=== PATIENT | female | born 1945 | race Caucasian/White ===

== ENCOUNTER 2017-02-14 12:30 | Emergency (ER) | payer MEDICARE, OTHER ==
[~2017-02-14] VITALS: Ht 162.6 cm; Wt 86.2 kg
[~2017-02-14 12:30] MED LIST: CNC1KV IJ; D50KC PO; MUPI1OIN5 NS; OMEP-10 PO; SULF1TAB35 PO; VIT D PO
--- NOTE | 2017-02-14 12:42 | ED General ---
General Chief Complaint: Dizziness/Syncope Stated Complaint: CHEST PAIN Source of Information: Patient Exam Limitations: No Limitations History of Present Illness Time Seen by Provider: 12:41 Initial Comments Patient had acute onset of vertigo while driving home from work 30 minutes prior to arrival. She felt as if the world was spinning when she was driving. 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 Symptoms are associated with shortness of breath. She denies chest pain to me. Patient was able to drive short distances to her sister's house. Then she came to the ER. Currently she still feels very dizzy. She denies headache or chest pain. Denies nausea vomiting. No recent head or neck injury including chiropractic manipulation Allergies and Home Medications Allergies Coded Allergies: codeine (Unverified Adverse Reaction, Intermediate, 10/26/13) UPSET STOMACH hydrocodone (Verified Adverse Reaction, Unknown, NAUSEA, 02/14/17) Home Medications Cyanocobalamin 1,000 Mcg/Ml Inj, 1,000 MCG IJ MONTHLY ON THE , (Reported) Ergocalciferol (Vitamin D2) 50,000 Unit Capsule, 50,000 UNIT PO WEEKLY ON TUESDAYS, (Reported) Constitutional: dizziness, No fever, malaise, weakness Respiratory: short of breath Cardiovascular: no symptoms reported Musculoskeletal: no symptoms reported Skin: no symptoms reported Psychiatric/Neurological: No Symptoms Reported All Other Systems Reviewed Negative Unless Noted: Yes Past Eiyudzr-Wioklj-Invxwc Hx Patient Social History Alcohol Use: Denies Use Smoking Status: Current Everyday Smoker Type Used: Cigarettes Recent Hopitalizations: No Immunizations Up To Date Tetanus Booster (TDap): More than 5yrs PED Vaccines UTD: Yes Date of Influenza Vaccine: Sep 28, 2013 Surgeries HX Surgeries: Yes Surgeries: Appendectomy, Section, Gallbladder, Hysterectomy Respiratory Hx Respiratory Disorders: No Cardiovascular Hx Cardiac Disorders: No Neurological Hx Neurological Disorders: No Reproductive System Hx Reproductive Disorders: Yes (HYSTERECTOMY) Sexually Transmitted Disease: No HIV/AIDS: No Female Reproductive Disorders: Menstrual Problems Genitourinary Hx Genitourinary Disorders: No Gastrointestinal Hx Gastrointestinal Disorders: Yes Gastrointestinal Disorders: Gall Bladder Disease Musculoskeletal Hx Musculoskeletal Disorders: No Endocrine Hx Endocrine Disorders: No HEENT HX ENT Disorders: Yes HEENT Disorders: Cataract Loss of Vision: Denies Hearing Impairment: Denies Cancer Hx Cancer: No Psychosocial Hx Psychiatric Problems: No Integumentary HX Skin/Integumentary Disorder: No Blood Transfusions Hx Blood Disorders: No Adverse Reaction to a Blood Tr: No Reviewed Nursing Assessment Reviewed/Agree w Nursing PMH: Yes Family Medical History Family Medial History: Colon cancer 19 MOTHER Congenital heart disease 19 FATHER G8 BROTHER Myocardial infarction 19 FATHER Physical Exam Vital Signs Vital Sign - Last 12Hours 02/14/17 12:46 Temp 97.9 Pulse 74 Resp 18 B/P (MAP) 146/74 Pulse Ox 94 O2 Delivery Room Air Capillary Refill : General Appearance: WD/WN, Moderate Distress Eyes: Bilateral Eye EOMI, Bilateral Eye Normal Inspection, Bilateral Eye Other (patient has horizontal nystagmus), Bilateral Eye PERRL HEENT: PERRL/EOMI, TMs Normal, Normal ENT Inspection, Pharynx Normal Neck: Supple, No Carotid Bruit Respiratory: Lungs Clear, Normal Breath Sounds Cardiovascular: Regular Rate, Rhythm, No Edema Gastrointestinal: Non Tender, Soft Extremity: No Pedal Edema Neurologic/Psychiatric: Alert, Oriented x3, No Motor/Sensory Deficits, Normal Mood/Affect, 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 client 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 II-XII Norm as Tested, Other (wswhpo-wyxr-gevrpc is normal bilaterally) Skin: Normal Color, Warm/Dry Progress/Results/Core Measures Results/Orders Lab Results Laboratory Tests Test 02/14/17 12:36 Range/Units White Blood Count 8.5 4.3-11.0 10^3/uL Red Blood Count 4.09 L 4.35-5.85 10^6/uL Hemoglobin 13.0 11.5-16.0 G/DL Hematocrit 39 35-52 % Mean Corpuscular Volume 95 80-99 FL Mean Corpuscular Hemoglobin 32 25-34 PG Mean Corpuscular Hemoglobin Concent 34 32-36 G/DL Red Cell Distribution Width 12.7 10.0-14.5 % Platelet Count 251 130-400 10^3/uL Mean Platelet Volume 9.9 7.4-10.4 FL Neutrophils (%) (Auto) 37 L 42-75 % Lymphocytes (%) (Auto) 52 H 12-44 % Monocytes (%) (Auto) 7 0-12 % Eosinophils (%) (Auto) 4 0-10 % Basophils (%) (Auto) 1 0-10 % Neutrophils # (Auto) 3.2 1.8-7.8 X 10^3 Lymphocytes # (Auto) 4.4 H 1.0-4.0 X 10^3 Monocytes # (Auto) 0.6 0.0-1.0 X 10^3 Eosinophils # (Auto) 0.3 0.0-0.3 10^3/uL Basophils # (Auto) 0.1 0.0-0.1 10^3/uL Prothrombin Time 12.4 12.2-14.7 SEC INR Comment 1.0 0.8-1.4 Activated Partial Thromboplast Time 25 24-35 SEC Sodium Level 137 135-145 MMOL/L Potassium Level 3.8 3.6-5.0 MMOL/L Chloride Level 105 98-107 MMOL/L Carbon Dioxide Level 19 L 21-32 MMOL/L Anion Gap 13 5-14 MMOL/L Blood Urea Nitrogen 10 7-18 MG/DL Creatinine 0.80 0.60-1.30 MG/DL Estimat Glomerular Filtration Rate > 60 BUN/Creatinine Ratio 13 Glucose Level 93 70-105 MG/DL Calcium Level 9.3 8.5-10.1 MG/DL Magnesium Level 1.9 1.8-2.4 MG/DL Total Bilirubin 0.4 0.1-1.0 MG/DL Aspartate Amino Transf (AST/SGOT) 15 5-34 U/L Alanine Aminotransferase (ALT/SGPT) 10 0-55 U/L Alkaline Phosphatase 61 40-136 U/L Troponin I < 0.30 <0.30 NG/ML B-Type Natriuretic Peptide 11.8 <100.0 PG/ML Total Protein 7.0 6.4-8.2 G/DL Albumin 4.1 3.2-4.5 G/DL My Orders Orders - RAMIREZ CROWDER MD Chest 1 View, Ap/Pa Only (02/14/17 12:32) Ekg Tracing (02/14/17 12:32) Cbc With Automated Diff (02/14/17 12:32) Magnesium (02/14/17 12:32) Cardiac Profile 1 (02/14/17 12:32) Comprehensive Metabolic Panel (02/14/17 12:32) Protime With Inr (02/14/17 12:32) Partial Thromboplastin Time (02/14/17 12:32) O2 (02/14/17 12:32) Monitor-Rhythm Ecg Trace Only (02/14/17 12:32) Saline Lock/Iv-Start (02/14/17 12:32) BNP (02/14/17 12:42) Ct Head Wo (02/14/17 12:42) Meclizine Tablet (Antivert Tablet) (02/14/17 12:45) Medications Given in ED Current Medications Medications Dose Ordered Sig/Justin Route Start Time Stop Time Status Last Admin Dose Admin Meclizine HCl 25 mg ONCE ONCE PO 02/14/17 12:45 02/14/17 12:46 DC 02/14/17 13:06 25 MG Vital Signs/I&O Vital Sign - Last 12Hours 02/14/17 12:46 Temp 97.9 Pulse 74 Resp 18 B/P (MAP) 146/74 Pulse Ox 94 O2 Delivery Room Air Progress Note : Time: 13:43 Progress Note Symptoms are much improved after antivert. Patient able to sit up in bed without problems. No complaints of pain or dyspnea or vomiting. ECG Initial ECG Rhythm: Normal Sinus Initial ECG Intervals: Normal Initial ECG Impression: Nonspecific Changes Initial ECG Comparisson: Unchanged Diagnostic Imaging Comments Date of Exam:02/14/17 CHEST 1 VIEW, AP/PA ONLY INDICATION: Dyspnea. Comparison is made to study of 06/27/2016. FINDINGS: Heart size and pulmonary vascularity are within normal limits, and the lungs are clear, bilaterally. IMPRESSION: Unremarkable chest. Date of Exam:02/14/17 CT HEAD WO PROCEDURE: CT head without contrast. TECHNIQUE: Multiple contiguous axial images were obtained through the brain without the use of intravenous contrast. INDICATION: Syncopal episodes. COMPARISON: CT head without contrast 06/27/2016. FINDINGS: No intracranial hemorrhage, mass effect, hydrocephalus, or extra-axial fluid collections. No CT evidence of acute infarction. Osseous structures are intact. The orbits and mastoids are unremarkable. Persistent mild mucosal thickening in ethmoid and left sphenoid sinuses. 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 No air-fluid levels. IMPRESSION: 1. No acute intracranial CT findings. 2. Chronic-appearing paranasal sinus disease in the ethmoid and sphenoid sinuses. Departure Impression Impression: Primary Impression: Vertigo Additional Impression: Labyrinthitis Disposition: 01 HOME, SELF-CARE Condition: Stable Departure-Patient Inst. Decision time for Depature: 13:53 Referrals: NIA REGAN DO (PCP/Family) Primary Care Physician Patient Instructions: Vertigo (a Type of Dizziness) (DC) Scripts Meclizine HCl (Meclizine HCl) 25 Mg Tablet 25 MG PO QID Y for DIZZINESS, #20 TAB Prov: RAMIREZ CROWDER MD 02/14/17 RAMIREZ CROWDER MD Feb 14, 2017 12:41
[2017-02-14 12:44] LABS: BASOPHILS # (AUTO) 0.1 10^3/uL (0.0-0.1); BASOPHILS % (AUTO) 1 % (0-10); EOSINOPHILS # (AUTO) 0.3 10^3/uL (0.0-0.3); EOSINOPHILS % (AUTO) 4 % (0-10); LYMPHOCYTES # (AUTO) 4.4 X 10^3 (1.0-4.0); LYMPHOCYTES % (AUTO) 52 % (12-44); MEAN CORPUSCULAR HEMOGLOBIN 32 PG (25-34); MEAN CORPUSCULAR HGB CONC 34 G/DL (32-36); MEAN CORPUSCULAR VOLUME 95 FL (80-99); MEAN PLATELET VOLUME 9.9 FL (7.4-10.4); MONOCYTES # (AUTO) 0.6 X 10^3 (0.0-1.0); MONOCYTES % (AUTO) 7 % (0-12); NEUTROPHILS # (AUTO) 3.2 X 10^3 (1.8-7.8); NEUTROPHILS % (AUTO) 37 % (42-75); PLATELET COUNT 251 10^3/uL (130-400); RED BLOOD COUNT 4.09 10^6/uL (4.35-5.85); RED CELL DISTRIBUTION WIDTH 12.7 % (10.0-14.5); WHITE BLOOD COUNT 8.5 10^3/uL (4.3-11.0)
--- NOTE | 2017-02-14 12:58 | Diagnostic Imaging Report ---
INDICATION: Dyspnea. Comparison is made to study of 06/27/2016. FINDINGS: Heart size and pulmonary vascularity are within normal limits, and the lungs are clear, bilaterally. IMPRESSION: Unremarkable chest. Dictated by: Dictated on workstation # [id number]
[2017-02-14 13:02] LABS: ALANINE AMINOTRANSFERASE 10 U/L (0-55); ALBUMIN 4.1 G/DL (3.2-4.5); ANION GAP 13 MMOL/L (5-14); ASPARTATE AMINO TRANSFERASE 15 U/L (5-34); BILIRUBIN,TOTAL 0.4 MG/DL (0.1-1.0); BLOOD UREA NITROGEN 10 MG/DL (7-18); BUN/CREATININE RATIO 13; CALCIUM 9.3 MG/DL (8.5-10.1); CARBON DIOXIDE 19 MMOL/L (21-32); CHLORIDE 105 MMOL/L (98-107); GFR ESTIMATED > 60; GLUCOSE 93 MG/DL (70-105); MAGNESIUM 1.9 MG/DL (1.8-2.4); POTASSIUM 3.8 MMOL/L (3.6-5.0); SODIUM 137 MMOL/L (135-145)
[2017-02-14 13:04] LABS: PROTHROMBIN TIME PATIENT 12.4 SEC (12.2-14.7)
[2017-02-14] MEDS: MECLIZINE 25 MG (ANTIVERT) TAB PO ONE (13:06)
--- NOTE | 2017-02-14 13:32 | Diagnostic Imaging Report ---
PROCEDURE: CT head without contrast. TECHNIQUE: Multiple contiguous axial images were obtained through the brain without the use of intravenous contrast. INDICATION: Syncopal episodes. COMPARISON: CT head without contrast 06/27/2016. FINDINGS: No intracranial hemorrhage, mass effect, hydrocephalus, or extra-axial fluid collections. No CT evidence of acute infarction. Osseous structures are intact. The orbits and mastoids are unremarkable. Persistent mild mucosal thickening in ethmoid and left sphenoid sinuses. 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 No air-fluid levels. IMPRESSION: 1. No acute intracranial CT findings. 2. Chronic-appearing paranasal sinus disease in the ethmoid and sphenoid sinuses. Dictated by: Dictated on workstation # [id number]
[2017-02-14] MEDS ORDERED: MECL-106 PO (13:54)
[2017-02-14 14:15] VITALS: BP 140/96
--- OUTSIDE RECORDS SUMMARY | 2017-02-16 12:35 | XMS REPORT ---
Author Author STEVIE MONTOYA [facility] [employer] Address Unknown Phone Unavailable Care Team Providers Care Restaurant Attendant Name Role Phone STEVIE MONTOYA CP Unavailable Allergies No Known Allergies Problems Problem Type Condition Code Onset Dates Condition Status Assessment Visit for TB skin test Z11.1 Active Problem Screening examination for pulmonary tuberculosis V74.1 Active Medications No Known Medications Procedures Procedure Coding System Code Date TB INTRADERMAL TEST CPT-4 08225 Sep 04, 2016 Results No Known Results Summary Purpose [employer] Submission
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
== END 2017-02-14 14:15 | disposition home or self-care (01) ==
LOC: EDUNIT# 12:30 → ER 12:32
DX: R42 Dizziness and giddiness (principal); H83.03 Labyrinthitis, bilateral; J32.8 Other chronic sinusitis; F17.210 Nicotine dependence, cigarettes, uncomplicated
CPT/HCPCS: 36415; 70450; 71010; 80053; 83735; 83880; 84484; 85025; 85610; 85730; 93005; 93041

== ENCOUNTER 2017-11-26 13:44 | Outpatient (CLI) | payer MEDICARE, OTHER ==
[~2017-11-26] VITALS: Ht 160 cm; Wt 90.7 kg
[~2017-11-26 13:44] MED LIST changes: -D50KC PO; +ERGO50006 PO; +MECL-106 PO
== END 2017-11-26 13:47 ==
LOC: PREOP 13:44
PROVIDERS: ATTEND Surgery
DX: Z01.818 Encounter for other preprocedural examination (principal); R13.10 Dysphagia, unspecified; Z80.0 Family history of malignant neoplasm of digestive organs

== ENCOUNTER 2017-12-02 07:08 | Day surgery (SDC) | payer MEDICARE, OTHER ==
[~2017-12-02] VITALS: Ht 160 cm; Wt 90.7 kg
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
[2017-12-02] MEDS ORDERED: LACTATED RINGERS 1,000 ML IV ONE (07:26)
[2017-12-02] MEDS ORDERED: LACTATED RINGERS 1,000 ML IV STA (07:39)
[2017-12-02] MEDS ORDERED: HURRICAINE EXT TUBE (BENZOCAINE) XX PRN (07:45)
[2017-12-02 07:46] VITALS: BP 124/72
--- NOTE | 2017-12-02 07:54 | Progress Note-Pre Operative ---
Pre-Operative Progress Note H&P Reviewed The H&P was reviewed, patient examined and no changes noted. Date Seen by Provider: Dec 02, 2017 Time Seen by Provider: 07:53 Date H&P Reviewed: Dec 02, 2017 Time H&P Reviewed: 07:53 Pre-Operative Diagnosis: dysphagia, family history colon cancer ANUEL DAWSON DO Dec 02, 2017 07:54
[2017-12-02] MEDS ORDERED: PROPOFOL INJECTION 50 ML IV ONE (07:55)
[2017-12-02] MEDS ORDERED: MIDAZOLAM 2 MG/2 ML (VERSED) VIAL ONE (07:56)
[2017-12-02] MEDS ORDERED: proPOfol 200 MG/20 ML (DIPRIVAN) VIAL IV ONE (09:10)
--- NOTE | 2017-12-02 09:32 | Progress Note-Post Operative ---
Post-Operative Progess Note Surgeon (s)/Cook Larder (s) Surgeon ANUEL DAWSON DO Cook Larder: na Pre-Operative Diagnosis dysphagia, family history colon cancer Post-Operative Diagnosis gastritis, small hiatal hernia, colon polyps x 5 Procedure & Operative Findings Date of Procedure 12/02/17 Procedure Performed/Findings egd c biopsies, colonoscopy with hot bx polypectomy x 2 and snare polypectomy x 3 Anesthesia Type per respiratory therapy instructor Estimated Blood Loss Estimated blood loss (mL): none Specimens/Packing Specimens Removed antrum, cardia , ge junction, transverse/descending x 2/sigmoid x 1/rectal x 1 ANUEL DAWSON DO Dec 02, 2017 09:32
[2017-12-02] MEDS ORDERED: PANT40TA2 PO (09:33)
--- NOTE | 2017-12-02 09:36 | Discharge Inst-Simple/Standard ---
Discharge Inst-Standard Discharge Medications New, Converted or Re-Newed RX: Transmitted to Pharmacy Patient Instructions/Follow Up Plan of Care/Instructions/FU: 3 weeks Christi Activity as Tolerated: Yes Discharge Diet: Regular Diet ANUEL DAWSON DO Dec 02, 2017 09:36
[2017-12-02 09:45] VITALS: BP 122/78
[2017-12-02 10:10] VITALS: BP 129/79
[2017-12-02 10:20] VITALS: BP 129/79
[2017-12-02] MEDS ORDERED: HURRICAINE EXT TUBE (BENZOCAINE) ONE (14:29)
--- NOTE | 2017-12-03 09:22 | OPERATIVE REPORT ---
DATE OF SERVICE: 12/02/2017 PREOPERATIVE DIAGNOSES: Dysphagia, family history of colon cancer. POSTOPERATIVE DIAGNOSES: Gastritis, small hiatal hernia, colon polyps x5. PROCEDURE: EGD with biopsies, colonoscopy with hot biopsy and polypectomy x2. History of polypectomy x3. ANESTHESIA: Per LEDGE MAN. ESTIMATED BLOOD LOSS: None. SPECIMENS: Antrum, cardia, GE junction, transverse, descending, sigmoid and rectal polyps. PROCEDURE: The patient was taken to the endoscopy suite, placed in left lateral recumbent position. Timeout was performed. Scope was inserted in mouth, down into esophagus, stomach and into the duodenum without difficulty. There were no polyps, mass or ulcerations within the duodenum. The scope was slowly retracted back into the stomach, which has some slight erythematous changes. Biopsy of the antrum was obtained. The scope was retroflexed noting on the cardia some significant inflammation changes as well. Biopsy of the cardia was obtained. A small hiatal hernia was present. Scope was returned to its normal position, slowly withdrawn. The GE junction with some slight erythematous changes was present. No polyps, masses or ulcerations. Biopsies at the GE junction was obtained. Scope was slowly retracted back until completely removed, noting no other pathology. Digital rectal exam was performed and there were no palpable polyps, masses or ulcerations. Scope was inserted into the rectum and advanced all the way to the cecum with minimal difficulty. Prep was adequate with some irrigation and suction. There are no polyps, mass or ulceration within the cecum or ascending colon. Within the transverse colon, a slightly larger polyp was present, to which snare polypectomy was performed. Scope was continuously retracted back. There were 2 polyps in the descending colon, which one step polypectomy was performed. The second hot biopsy polypectomy was performed. Scope was continuously retracted back into the sigmoid colon where another polyp was present, which snare polypectomy performed. The scope was then slowly retracted back to the rectum where a small polyp was present, to which hot biopsy polypectomy was performed. Scope was also retroflexed noting some small hemorrhoids. Scope was returned to its normal position, slowly retracted until completely removed. RECOMMENDATIONS: The patient will be started on Protonix 40 mg daily. The patient also will need repeat colonoscopy in one year for reevaluation. If she has any problems prior to that, she should be reevaluated at that time. The patient will follow up in three weeks to discuss pathology results and see how she is doing at that time. Job ID: [id number] DocumentID: [id number] Dictated Date: 12/02/2017 09:41:24 Access Services Librarian Date: 12/02/2017 14:33:10 Dictated By: ANUEL DAWSON DO
== END 2017-12-02 10:20 | disposition home or self-care (01) ==
LOC: ENDO 07:08
PROVIDERS: ATTEND Surgery
DX: Z12.11 Encounter for screening for malignant neoplasm of colon (principal); D12.3 Benign neoplasm of transverse colon; D12.4 Benign neoplasm of descending colon; K62.1 Rectal polyp; K29.50 Unspecified chronic gastritis without bleeding; K44.9 Diaphragmatic hernia without obstruction or gangrene; Z80.0 Family history of malignant neoplasm of digestive organs; J44.9 Chronic obstructive pulmonary disease, unspecified; G47.33 Obstructive sleep apnea (adult) (pediatric); F17.210 Nicotine dependence, cigarettes, uncomplicated

== ENCOUNTER 2018-12-01 05:36 | Outpatient (CLI) | payer MEDICARE, OTHER ==
[~2018-12-01] VITALS: Ht 160 cm; Wt 90.7 kg
[~2018-12-01 05:36] MED LIST changes: +PANT40TA2 PO
== END 2018-12-01 11:58 | disposition home or self-care (01) ==
LOC: PREOP 05:36
PROVIDERS: ATTEND Surgery
DX: Z01.818 Encounter for other preprocedural examination (principal)

== ENCOUNTER 2018-12-08 06:51 | Day surgery (SDC) | payer MEDICARE, OTHER ==
[~2018-12-08] VITALS: Ht 160 cm; Wt 90.7 kg
[2018-12-08] MEDS ORDERED: LACTATED RINGERS 1,000 ML IV ONE (07:06)
[2018-12-08] MEDS ORDERED: PROPOFOL INJECTION 50 ML IV ONE (07:33)
[2018-12-08] MEDS ORDERED: MIDAZOLAM 2 MG/2 ML (VERSED) VIAL ONE (07:34)
[2018-12-08] MEDS ORDERED: LACTATED RINGERS 1,000 ML IV STA (07:34)
[2018-12-08 07:38] VITALS: BP 129/75
[2018-12-08] MEDS ORDERED: HURRICAINE EXT TUBE (BENZOCAINE) XX PRN (07:45)
--- NOTE | 2018-12-08 07:48 | Progress Note-Pre Operative ---
Pre-Operative Progress Note H&P Reviewed The H&P was reviewed, patient examined and no changes noted. Date Seen by Provider: Dec 08, 2018 Time Seen by Provider: 07:46 Date H&P Reviewed: Dec 08, 2018 Time H&P Reviewed: 07:46 Pre-Operative Diagnosis: epigastric abdominal pain, history of polyps ANUEL DAWSON DO Dec 08, 2018 07:48
--- NOTE | 2018-12-08 08:55 | Progress Note-Post Operative ---
Post-Operative Progess Note Surgeon (s)/Forest Nursery Supervisor (s) Surgeon ANUEL DAWSON DO Forest Nursery Supervisor: na Pre-Operative Diagnosis epigastric abdominal pain, history of polyps Post-Operative Diagnosis gastritis, rectal polyp Procedure & Operative Findings Date of Procedure 12/08/18 Procedure Performed/Findings egd c biopsies, colonoscopy with hot bx polypectomy Anesthesia Type per business programmer Estimated Blood Loss Estimated blood loss (mL): none Specimens/Packing Specimens Removed antrum, body, ge, rectal polyp ANUEL DAWSON DO Dec 08, 2018 08:54
[2018-12-08] MEDS ORDERED: HURRICAINE EXT TUBE (BENZOCAINE) ONE (08:57)
[2018-12-08] MEDS ORDERED: PANT40TA2 PO (08:58)
[2018-12-08 09:00] VITALS: BP 126/73
--- NOTE | 2018-12-08 09:00 | Discharge Inst-Simple/Standard ---
Discharge Inst-Standard Discharge Medications New, Converted or Re-Newed RX: Transmitted to Pharmacy Patient Instructions/Follow Up Plan of Care/Instructions/FU: 2 weeks Christi Activity as Tolerated: Yes Discharge Diet: Regular Diet ANUEL DAWSON DO Dec 08, 2018 09:00
[2018-12-08 09:30] VITALS: BP 137/74
[2018-12-08 09:45] VITALS: BP 137/74
--- NOTE | 2018-12-08 12:32 | Anesthesia-General Post-Op ---
MAC Patient Condition Mental Status/LOC: Same as Preop Cardiovascular: Satisfactory Nausea/Vomiting: Absent Respiratory: Satisfactory Pain: Controlled Complications: Absent Post Op Complications Complications None Follow Up Care/Instructions Patient Instructions None needed. Anesthesiology Discharge Order Discharge Order Patient is doing well, no complaints, stable vital signs, no apparent adverse anesthesia problems. No complications reported per nursing. RYNE DUNBAR CRNA Dec 08, 2018 12:32
--- NOTE | 2018-12-08 13:23 | OPERATIVE REPORT ---
DATE OF SERVICE: 12/08/2018 PREOPERATIVE DIAGNOSES: Epigastric abdominal pain and history of colon polyps. POSTOPERATIVE DIAGNOSIS: Gastritis and rectal polyp. PROCEDURES: EGD with biopsies, colonoscopy with hot biopsy polypectomy. SURGEON: Anuel Barraza DO. ANESTHESIA: Per RN SCHOOL. ESTIMATED BLOOD LOSS: None. COMPLICATIONS: None. INDICATIONS: The patient is a 73-year-old female with epigastric abdominal pain and need for screening colonoscopy. She understands the risks and benefits of procedure and wished to proceed with the procedure. Consent was signed in the chart. PROCEDURE: The patient was taken to the endoscopy suite and placed in the left lateral recumbent position. Timeout was performed. Scope was inserted in the mouth, down the esophagus, stomach and into the duodenum without difficulty. There were no polyps, masses or ulceration of the duodenum. Scope was slowly retracted back in the stomach where it was further insufflated significant erythema around the stomach. Biopsies of the antrum and body were obtained. Scope was retroflexed noting no other significant pathology. Scope was returned to its normal position, slowly withdrawn to the distal esophagus, the GE junction had some slight erythematous changes. Biopsy was obtained. Scope was then slowly retracted back until completely removed. Digital rectal exam was performed. There were no palpable polyps, masses or ulcerations. Scope was inserted in the rectum and advanced all the way to the cecum with minimal difficulty. Prep was adequate with irrigation and suction. Scope was then slowly retracted back. There were no polyps, masses or ulcerations in the cecum, ascending, transverse, descending and sigmoid colon. Once in the rectum, it was retroflexed noting a small polyp, which hot biopsy polypectomy was performed. Scope was then returned to its normal position, slowly withdrawn until completely removed, noting no other pathology. The patient tolerated the procedure well without any complications. She was taken to recovery room in stable condition. RECOMMENDATIONS: The patient was started on Protonix 40 mg one time a day. We will follow up in the office in 2 weeks. The patient will need repeat colonoscopy in five years. If she has any problems prior to that, she should be reevaluated at that time. Job ID: [id number] DocumentID: [id number] Dictated Date: 12/08/2018 09:03:04 Job Coach/Job Developer Date: 12/08/2018 13:22:22 Dictated By: ANUEL BARRAZA DO
== END 2018-12-08 09:50 | disposition home or self-care (01) ==
LOC: ENDO 06:51
PROVIDERS: ATTEND Surgery
DX: Z12.11 Encounter for screening for malignant neoplasm of colon (principal); K62.1 Rectal polyp; K29.70 Gastritis, unspecified, without bleeding; Z86.010 Personal history of colon polyps; G47.33 Obstructive sleep apnea (adult) (pediatric); K21.0 Gastro-esophageal reflux disease with esophagitis; G56.93 Unspecified mononeuropathy of bilateral upper limbs; F17.210 Nicotine dependence, cigarettes, uncomplicated; E66.9 Obesity, unspecified; Z68.35 Body mass index [BMI] 35.0-35.9, adult; Z79.899 Other long term (current) drug therapy
CPT/HCPCS: 88305; 88312; 88342

== ENCOUNTER → 2019-02-10 | Outpatient (CLI) | payer MEDICARE, OTHER ==
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
== END ==
LOC: RAD 10:14
PROVIDERS: ATTEND Internal Medicine
DX: M17.11 Unilateral primary osteoarthritis, right knee (principal); L82.0 Inflamed seborrheic keratosis; M25.572 Pain in left ankle and joints of left foot; Z87.828 Personal history of other (healed) physical injury and trauma
CPT/HCPCS: 73610

== ENCOUNTER → 2019-06-24 | Outpatient (CLI) | payer MEDICARE, OTHER ==
--- NOTE | 2019-06-30 10:36 | Diagnostic Imaging Report ---
PROCEDURE: MRI left joint lower extremity without contrast. TECHNIQUE: Multiplanar, multisequence non contrast-enhanced MRI of the left lower extremity was accomplished. INDICATION: Tendonitis of the left posterior tibial tendon. Medial left ankle pain radiating into the leg and hip. COMPARISON: Radiographs from 02/10/2019. FINDINGS: Images are submitted for review on 06/30/2019. No acute fracture or dislocation is seen in the left ankle. Alignment appears normal. There are moderate degenerative changes in the midfoot and hindfoot. Subcortical cystlike changes are seen at the talus. There is marked thinning of the articular cartilage in the tibiotalar joint with multiple focal areas of full-thickness cartilage loss. No significant joint effusion is seen. The anterior and posterior syndesmotic ligaments appear intact. The anterior talofibular and posterior talofibular ligaments are intact. The calcaneofibular ligament is intact. The deep fibers of the deltoid ligament demonstrate focal increased signal concerning for low-grade partial tearing. The tibio-spring portion of the deltoid ligament demonstrates increased signal and irregularity concerning for tear, as does the superomedial aspect of the spring ligament. The plantar fascia is thickened without tear seen. There is a prominent plantar calcaneal enthesophyte. The sinus tarsi demonstrates fatty signal with a small ganglion cyst measuring 7 mm in diameter. The Achilles tendon is intact. The peroneal tendons are intact. The flexor tendons appear intact. No discrete tear is seen of the flexor tendons. The extensor tendons are intact. No focal muscular atrophy is seen. The tarsal tunnel appears normal with no masses, fluid collection or abnormally dilated vessels seen. IMPRESSION: 1. Findings concerning for high-grade partial tears of the superomedial spring ligament and tibial spring portion of the deltoid ligament, with surrounding soft tissue edema. Suspect low-grade partial tear of the deep deltoid ligament. The posterior tibial tendon appears intact. 2. Small ganglion cyst in the sinus tarsi but otherwise preserved fatty signal. 3. Degenerative changes in the midfoot, hindfoot and ankle with significant cartilage loss at the tibiotalar joint. Dictated by: Dictated on workstation # [id number]
== END ==
LOC: RAD 16:48
PROVIDERS: ATTEND Orthopaedic Surgery
DX: M67.472 Ganglion, left ankle and foot (principal); M19.072 Primary osteoarthritis, left ankle and foot; M76.822 Posterior tibial tendinitis, left leg
CPT/HCPCS: 73721

== ENCOUNTER → 2022-03-01 | Outpatient (CLI) | payer MEDICARE, OTHER ==
[~2022-03-01] VITALS: Ht 160 cm; Wt 81.0 kg
[~2022-03-01] MED LIST changes: +CATHETER FLUSH 10 ML SYR IVP PRN; -MECL-106 PO; +MECL-149 PO; +REGADENOSON 0.4 MG/5 ML SYR (LEXISCAN) IV ONE; -SULF1TAB35 PO; +SULF1TAB38 PO
[2022-03-01 08:10] VITALS: BP 133/75
--- NOTE | 2022-03-01 11:13 | Cardiology Stress Test Report ---
Stress Test Report Date of Procedure/Referring: Date of Procedure: Mar 01, 2022 PCP Nia Moody DO Admitting Physician Nia Moody DO Indications: Dizziness Baseline Vital Signs Vital Signs Date Time Temp Pulse Resp B/P (MAP) Pulse Ox O2 Delivery O2 Flow Rate FiO2 03/01/22 08:10 72 133/75 (94) Summary: Patient receive a resting and stress dose of Myoview, images were acquired and reviewed in the short axis view, horizontal long axis view and vertical long axis view. TID: 1.07 SSS: 1 SDS: 1 EF: 79 1. No significant ischemia or infarction on SPECT images 2. Normal left ventricular size, EF 79% Copy Copies To 1: NIA MOODY BASHAR J MD Mar 01, 2022 11:13
== END ==
LOC: CARD 06:48
PROVIDERS: ATTEND Internal Medicine
DX: R42 Dizziness and giddiness (principal); R53.83 Other fatigue
CPT/HCPCS: 78452; 93017; A9502

== ENCOUNTER → 2022-07-26 | Outpatient (CLI) | payer MEDICARE, OTHER ==
[~2022-07-26] MED LIST changes: -CATHETER FLUSH 10 ML SYR IVP PRN; -REGADENOSON 0.4 MG/5 ML SYR (LEXISCAN) IV ONE
--- NOTE | 2022-07-26 16:15 | Diagnostic Imaging Report ---
PROCEDURE: US carotid duplex, bilateral. TECHNIQUE: Multiple real-time grayscale images were obtained over the carotid arteries in various projections, bilaterally. Additional spectral analysis and color Doppler duplex images were also obtained. INDICATION: Dizziness Parameters based on the consensus panel Coblert-Scale and Doppler ultrasound criteria published September 2003, Radiology, Volume 229. DOPPLER (peak systolic velocity M/S Right Left CCA .46 .54 ICA Proximal .51 .33 ICA Mid .52 .46 ICA Distal .50 .64 RATIO 1.1 1.2 ECA .81 .38 VERT .36 .64 Scattered plaque is seen within the bilateral carotid bulbs and bifurcations. Waveforms are normal. Normal antegrade flow within both vertebral arteries. IMPRESSION: Atherosclerosis with less than 50% stenosis of the bilateral internal carotid arteries by velocity and ratio criteria. Dictated by: Dictated on workstation # [id number]
== END ==
LOC: RAD 11:35
PROVIDERS: ATTEND Internal Medicine
DX: I65.23 Occlusion and stenosis of bilateral carotid arteries (principal); M17.0 Bilateral primary osteoarthritis of knee; F41.8 Other specified anxiety disorders
CPT/HCPCS: 93880

== ENCOUNTER 2023-03-22 12:38 | Emergency (ER) | payer MEDICARE, OTHER ==
[~2023-03-22] VITALS: Ht 162 cm; Wt 82.0 kg
[2023-03-22] MEDS ORDERED: ORPHENADRINE 60 MG/2 ML (NORFLEX) AMP (ED ONLY) IV ONE (13:15)
[2023-03-22 13:29] LABS: BASOPHILS # (AUTO) 0.1 10^3/uL (0.0-0.1); BASOPHILS % (AUTO) 1 % (0-10); EOSINOPHILS # (AUTO) 0.4 10^3/uL (0.0-0.3); EOSINOPHILS % (AUTO) 4 % (0-10); HEMATOCRIT 36 % (35-52); LYMPHOCYTES # (AUTO) 4.2 10^3/uL (1.0-4.0); LYMPHOCYTES % (AUTO) 47 % (12-44); MEAN CORPUSCULAR HEMOGLOBIN 32 pg (25-34); MEAN CORPUSCULAR HGB CONC 33 g/dL (32-36); MEAN CORPUSCULAR VOLUME 97 fL (80-99); MEAN PLATELET VOLUME 9.8 fL (9.0-12.2); MONOCYTES # (AUTO) 0.6 10^3/uL (0.0-1.0); MONOCYTES % (AUTO) 7 % (0-12); NEUTROPHILS # (AUTO) 3.7 10^3/uL (1.8-7.8); NEUTROPHILS % (AUTO) 41 % (42-75); PLATELET COUNT 232 10^3/uL (130-400)
[2023-03-22 13:38] LABS: ALBUMIN 3.8 GM/DL (3.2-4.5)
[2023-03-22 13:39] LABS: POTASSIUM 4.2 MMOL/L (3.6-5.0)
[2023-03-22 13:40] LABS: CALCIUM 9.1 MG/DL (8.5-10.1)
[2023-03-22 13:41] LABS: TOTAL PROTEIN 6.8 GM/DL (6.4-8.2)
[2023-03-22 13:43] LABS: BILIRUBIN,TOTAL 0.4 MG/DL (0.1-1.0)
[2023-03-22 13:45] LABS: CREATININE SERUM 0.91 MG/DL (0.60-1.30)
[2023-03-22 13:47] LABS: ERYTHROCYTE SEDIMENTATION RATE 14 MM/HR (0-30); MAGNESIUM 1.9 MG/DL (1.6-2.4)
[2023-03-22] MEDS ORDERED: fentaNYL INJ 100 MCG/2 ML AMP IVP ONE (14:30)
--- NOTE | 2023-03-22 14:31 | ED General ---
General Chief Complaint: Back Problems Stated Complaint: PAIN NECK/SHOULDERS/BACK Nursing Triage Note: AMBULATED TO ROOM WITH COMPLAINTS OF BACK PAIN THAT RADIATES THRU SHOULDER BLADES, LEFT NECK, AND LEFT ARM THAT STARTED LAST NIGHT. PT STATES SHE TOOK 1600MG IN IBUPROFEN LAST NIGHT AND AGAIN AT 0800. Source of Information: Patient Exam Limitations: No Limitations History of Present Illness Date Seen by Provider: Mar 22, 2023 Time Seen by Provider: 13:00 Initial Comments This 77-year-old woman presents to the emergency room with complaints of pain in the left posterior lower neck that radiates into the back, through the shoulder, and into the left arm. Symptoms started last night. She denies any chest pain. There is no traumatic injury to this area recent or in the past. She took ibuprofen 1600 mg last night and 1600 mg this morning. She had modest improvement. There are no neurologic deficits. Although the pain seems most concentrated in the left posterior shoulder region, she actually complains of significant aching across the shoulder girdle, in the hips, and worsening of chronic pain in her knees. She has also experienced some muscle cramping. Allergies and Home Medications Allergies Coded Allergies: No Known Drug Allergies (Unverified , 12/01/18) Patient Home Medication List Home Medication List Reviewed: Yes Cyanocobalamin (Cyanocobalamin Injection) 1,000 Mcg/Ml Inj, 1,000 MCG IJ MONTHLY ON THE , (Reported) Entered as Reported by: PHOEBE AMADO on 10/05/15 0820 Ergocalciferol (Vitamin D2) (Vitamin D2) 50,000 Unit Capsule, 50,000 UNIT PO WEEKLY ON TUESDAYS, (Reported) Entered as Reported by: PHOEBE AMADO on 10/05/15 0820 Hydrocodone/Acetaminophen (Hydrocodone-Acetamin 5-325 mg) 5 Mg-325 Mg Tablet, 1 TAB PO Q4H PRN for PAIN BREAKTROUGH Prescribed by: JIMMY RODRIGUEZ on 03/22/23 1440 Pantoprazole Sodium (Protonix) 40 Mg Tablet.dr, 40 MG PO DAILY Prescribed by: ANUEL DAWSON on 12/08/18 0858 Review of Systems Review of Systems Constitutional: no symptoms reported EENTM: no symptoms reported Respiratory: no symptoms reported Cardiovascular: no symptoms reported Gastrointestinal: no symptoms reported Genitourinary: no symptoms reported Musculoskeletal: see HPI Skin: no symptoms reported Psychiatric/Neurological: No Symptoms Reported Hematologic/Lymphatic: No Symptoms Reported Immunological/Allergic: no symptoms reported Past Upsvthy-Fpcmzs-Boawzn Hx Patient Social History Tobacco Use?: Yes Smoking Status: Current Everyday Smoker Substance use?: No Alcohol Use?: No Immunizations Up To Date Tetanus Booster (TDap): More than 5yrs PED Vaccines UTD: Yes Seasonal Allergies Seasonal Allergies: Yes Past Medical History Surgeries: Yes (C/S X3, LIPOMAS REMOVED) Appendectomy, Section, Gallbladder, Hysterectomy Respiratory: Yes Sleep Apnea Currently Using CPAP: No Currently Using BIPAP: No Cardiac: No Neurological: No Reproductive Disorders: Yes Female Reproductive Disorders: Menstrual Problems 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 Sexually Transmitted Disease: No HIV/AIDS: No Genitourinary: No Gastrointestinal: Yes Gastroesophageal Reflux, Chronic Diarrhea Musculoskeletal: Yes (HAS PAIN IN KNEES) Endocrine: No HEENT: Yes (READING GLASSES) Cataract Loss of Vision: Bilateral Hearing Impairment: Denies Cancer: No Psychosocial: Yes Anxiety, Depression Integumentary: No Blood Disorders: No Adverse Reaction/Blood Tranf: No (HAS HAD BLOOD WITH NO REACTION) Family Medical History Colon cancer 19 MOTHER Congenital heart disease 19 FATHER G8 BROTHER Myocardial infarction 19 FATHER Physical Exam Vital Signs Vital Signs - First Documented 03/22/23 12:42 Temp 36.3 Pulse 80 Resp 16 B/P (MAP) 129/94 (106) Pulse Ox 97 O2 Delivery Room Air Capillary Refill : Less Than 3 Seconds Height, Weight, BMI Height: 5'3.00" Weight: 200lbs. 0.0oz. [id number]; 31.00 BMI Method:Stated General Appearance: No Apparent Distress, WD/WN HEENT: PERRL/EOMI, Normal ENT Inspection Neck: Normal Inspection, Other (Tense tender musculature in the left lower posterior neck and into the trapezius muscle) Respiratory: Chest Non Tender, Lungs Clear, Normal Breath Sounds, No Accessory Muscle Use, No Respiratory Distress Cardiovascular: Regular Rate, Rhythm, No Edema, No Murmur Gastrointestinal: Normal Bowel Sounds, Non Tender, Soft Back: Normal Inspection, Other (Tenderness in the upper left back near the scapula) Extremity: Normal Inspection, Non Tender, No Pedal Edema Neurologic/Psychiatric: Alert, Oriented x3, No Motor/Sensory Deficits, Normal Mood/Affect Skin: Normal Color, Warm/Dry Progress/Results/Core Measures Suspected Sepsis SIRS Temperature: Pulse: 80 Respiratory Rate: 16 Laboratory Tests 03/22/23 13:20: White Blood Count 9.0 Blood Pressure 129 /94 Mean: 106 Laboratory Tests 03/22/23 13:20: Creatinine 0.91, Platelet Count 232, Total Bilirubin 0.4 Results/Orders Lab Results Laboratory Tests Test 03/22/23 13:20 Range/Units White Blood Count 9.0 4.3-11.0 10^3/uL Red Blood Count 3.70 L 3.80-5.11 10^6/uL Hemoglobin 12.0 11.5-16.0 g/dL Hematocrit 36 35-52 % Mean Corpuscular Volume 97 80-99 fL Mean Corpuscular Hemoglobin 32 25-34 pg Mean Corpuscular Hemoglobin Concent 33 32-36 g/dL Red Cell Distribution Width 12.5 10.0-14.5 % Platelet Count 232 130-400 10^3/uL Mean Platelet Volume 9.8 9.0-12.2 fL Immature Granulocyte % (Auto) 0 % Neutrophils (%) (Auto) 41 L 42-75 % Lymphocytes (%) (Auto) 47 H 12-44 % Monocytes (%) (Auto) 7 0-12 % Eosinophils (%) (Auto) 4 0-10 % Basophils (%) (Auto) 1 0-10 % Neutrophils # (Auto) 3.7 1.8-7.8 10^3/uL Lymphocytes # (Auto) 4.2 H 1.0-4.0 10^3/uL Monocytes # (Auto) 0.6 0.0-1.0 10^3/uL Eosinophils # (Auto) 0.4 H 0.0-0.3 10^3/uL Basophils # (Auto) 0.1 0.0-0.1 10^3/uL Immature Granulocyte # (Auto) 0.0 0.0-0.1 10^3/uL Erythrocyte Sedimentation Rate 14 0-30 MM/HR Sodium Level 138 135-145 MMOL/L Potassium Level 4.2 3.6-5.0 MMOL/L Chloride Level 106 98-107 MMOL/L Carbon Dioxide Level 20 L 21-32 MMOL/L Anion Gap 12 5-14 MMOL/L Blood Urea Nitrogen 14 7-18 MG/DL Creatinine 0.91 0.60-1.30 MG/DL Estimat Glomerular Filtration Rate 65 BUN/Creatinine Ratio 15 Glucose Level 74 70-105 MG/DL Calcium Level 9.1 8.5-10.1 MG/DL Corrected Calcium 9.3 8.5-10.1 MG/DL Magnesium Level 1.9 1.6-2.4 MG/DL Total Bilirubin 0.4 0.1-1.0 MG/DL Aspartate Amino Transf (AST/SGOT) 15 5-34 U/L Alanine Aminotransferase (ALT/SGPT) 8 0-55 U/L Alkaline Phosphatase 46 40-136 U/L Total Creatine Kinase 59 29-168 U/L C-Reactive Protein High Sensitivity 0.58 H 0.00-0.50 MG/DL Total Protein 6.8 6.4-8.2 GM/DL Albumin 3.8 3.2-4.5 GM/DL My Orders Orders - JIMMY WEINER MD Ekg Tracing (03/22/23 12:50) Cbc With Automated Diff (03/22/23 13:10) Comprehensive Metabolic Panel (03/22/23 13:10) Creatine Kinase (03/22/23 13:10) Hs C Reactive Protein (03/22/23 13:10) Erythrocyte Sedimentation Rate (03/22/23 13:10) Ed Iv/Invasive Line Start (03/22/23 13:10) Orphenadrine Inj (Ed Only) (Norflex Inje (03/22/23 13:15) Magnesium (03/22/23 13:12) Fentanyl Inj (Sublimaze Injection) (03/22/23 14:30) Medications Given in ED Vital Signs/I&O 03/22/23 03/22/23 12:42 14:46 Temp 36.3 Pulse 80 68 Resp 16 16 B/P (MAP) 129/94 (106) 149/95 Pulse Ox 97 94 O2 Delivery Room Air Room Air Capillary Refill : Less Than 3 Seconds Blood Pressure Mean: 106 Progress Note : Progress Note Because symptoms were by lateral and include the proximal muscle groups of the upper and lower extremities, labs were obtained for inflammatory markers to evaluate for conditions such as PMR. Patient cannot receive any more NSAIDs this morning as she had already exceeded recommended dosing of ibuprofen. Norflex was administered which did not improve her pain much. Fentanyl was later added. Labs were reviewed and interpreted by me in their entirety including CBC, CMP, CRP, magnesium, and creatinine kinase. It was noted that the differential on the WBC had a lymphocytic shift. This would suggest viral illness. The CRP and ESR inflammatory markers were unremarkable suggesting against inflammatory condition such as PMR. The remainder of the labs were unremarkable. See discharge instructions for further discussion. ECG Initial ECG Impression Date: Mar 22, 2023 Initial ECG Impression Time: 12:58 Initial ECG Rate: 76 Initial ECG Rhythm: Normal Sinus Initial ECG Intervals: Normal Comment Normal sinus rhythm with no ST elevation or depression. No abnormal intervals or axis deviation. Departure Impression Primary Impression: Myalgia Disposition: HOME, SELF-CARE Condition: Improved Departure-Patient Inst. Decision time for Depature: 14:33 Referrals: NIA REGAN DO (PCP/Family) Primary Care Physician Patient Instructions: Muscle and Bone Pain (DC) Add. Discharge Instructions: The exact cause of your muscle pain and tenderness is uncertain. You may continue taking ibuprofen but do not exceed 400 mg per dose. You may take 400 mg every 6 hours as needed. Add hydrocodone as prescribed for pain not controlled by ibuprofen. Hydrocodone may cause drowsiness so use with caution. Do not drive, operate machinery, or make important decisions while on hydrocodone. Hydrocodone may also cause constipation, so you may wish to use a stool softener while you are taking it. Drink plenty of clear liquids to stay well-hydrated. Follow-up with your doctor Friday for further evaluation. If you have escalating symptoms, you may need further studies such as MRI of your neck. Return to the ER if you have worsening symptoms despite following these instructions, especially if you develop weakness or numbness of your extremities, difficulties with bowel or bladder control, difficulty walking due to imbalance or weakness in your legs, or any other unusual symptoms. All discharge instructions reviewed with patient and/or family. Voiced understanding. Scripts Hydrocodone/Acetaminophen (Hydrocodone-Acetamin 5-325 mg) 5 Mg-325 Mg Tablet 1 TAB PO Q4H PRN for PAIN BREAKTROUGH, #8 TAB Prov: JIMMY WEINER MD 03/22/23 Copy Copies To 1: NIA REGAN JOSHUA T MD Mar 22, 2023 14:31
[2023-03-22] MEDS ORDERED: ACHD5005 PO (14:37)
[2023-03-22 14:46] VITALS: BP 149/95
== END 2023-03-22 14:46 | disposition home or self-care (01) ==
LOC: EDUNIT# 12:38 → ER 12:40
DX: M79.18 Myalgia, other site (principal); F17.200 Nicotine dependence, unspecified, uncomplicated
CPT/HCPCS: 36415; 80053; 82550; 83735; 85025; 85652; 86141; 93005